=== PATIENT | female | born 1990 | race Caucasian/White ===

== ENCOUNTER 2017-12-31 17:08 | Outpatient (REF) | payer MEDICAID, SELFPAY ==
[2017-12-31 19:46] LABS: *AMPHETAMINES SCREEN URINE Negative (Negative); *BARBITURATES SCREEN URINE Negative (Negative); *BENZODIAZEPINES SCREEN URINE Negative (Negative); Cannabinoids THC Negative (Negative); Cocaine Screen,Urine Negative (Negative); METHADONE URINE SCREEN Negative (Negative); OPIATES URINE SCREEN Negative (Negative)
[2017-12-31 20:15] LABS: Tricyclic Antidepressants Negative (Negative)
[2018-01-04 14:35] LABS: Buprenorphine Negative; Norbuprenorphine Negative
== END 2017-12-31 17:28 ==
LOC: LBN 17:08
PROVIDERS: Visit Provider Advanced Practice Midwife
DX: Z34.91 Encounter for supervision of normal pregnancy, unspecified, first trimester (principal)
CPT/HCPCS: 80307; 87086

== ENCOUNTER 2018-01-01 08:55 | Outpatient (CLI) | payer MEDICAID, SELFPAY ==
[2018-01-01 10:14] LABS: Abs Immature Grans 0.01 k/cumm (0.0-0.09); Absolute Basophil Count 0.02 k/cumm (0.0-0.2); Absolute Lymphocyte Count 1.45 k/cumm (1.2-3.4); Absolute Neutrophil Count 5.28 k/cumm (1.2-6.7); Basophils % 0.3; Eosinophils % 1.4; HGB 13.2 g/dL (12.0-15.5); Immature Grans % 0.1; Lymphocytes % 19.7; Mean Corp. HGB Concentration 33.8 g/dL (32.0-36.0); Mean Corpuscular Hemoglobin 28.9 pg (27.0-33.0); Mean Corpuscular Volume 85.3 fL (80-95); Monocytes % 6.8; Neutrophils % 71.7; Platelet Count 209 x1000/uL (130-400); RBC 4.57 m/cumm (4.00-5.20); RBC Distribution Width 13.1 % (11.7-14.6); White Blood Cell Count 7.36 k/cumm (4.4-10.8)
[2018-01-01 10:39] LABS: Glucose,1 Hr (Glucola) 88 mg/dL (80-140)
[2018-01-01 10:53] LABS: TSH (W/Ref FT4) 1.94 uIU/mL (0.358-3.74)
[2018-01-02 12:19] LABS: Hepatitis B Surface Ag Negative (NEGAT)
[2018-01-02 12:21] LABS: HIV-1/2 Ag & Ab Screen Negative (NEGAT)
[2018-01-02 12:30] LABS: Rubella IgG Ab (UVM) Positive
[2018-01-02 12:37] LABS: Syphilis Serology (RPR) Negative (Negative)
[2018-01-02 12:39] LABS: Varicella IgG Antibody Positive
[2018-01-02 13:26] LABS: Hepatitis C Ab w Rflx HCV PCR Negative (NEGAT)
[2018-01-02 14:17] LABS: Chlamydia Result Negative; GC Result Negative; Specimen Description URINE
== END 2018-01-01 09:15 ==
PROVIDERS: Visit Provider Advanced Practice Midwife
DX: Z34.91 Encounter for supervision of normal pregnancy, unspecified, first trimester (principal); Z11.4 Encounter for screening for human immunodeficiency virus [HIV]; Z11.59 Encounter for screening for other viral diseases; Z01.84 Encounter for antibody response examination; Z11.3 Encounter for screening for infections with a predominantly sexual mode of transmission
CPT/HCPCS: 36415; 82950; 86787; 86803; 86850; 86900; 86901; 87340; 87389; 87491; 87591; 84443; 85025; 86592; 86762

== ENCOUNTER 2018-01-28 17:43 | Outpatient (REF) | payer MEDICAID, SELFPAY | END 2018-01-28 18:03 | LOC: LBN 17:43 | PROVIDERS: Visit Provider Advanced Practice Midwife | DX: Z53.8 Procedure and treatment not carried out for other reasons (principal) | CPT/HCPCS: 87491; 87591 ==

== ENCOUNTER 2018-03-10 00:48 | Outpatient (CLI) | payer MEDICAID, SELFPAY ==
--- NOTE | 2018-03-10 13:50 | DI.US_ITS ---
SYMPTOM/DIAGNOSIS: ROUTINE [facility], Z34.90 OBSTETRICAL ULTRASOUND: Routine examination was performed. There is a single living intrauterine gestation. Estimated sonographic age is 22 weeks 1 day. The placenta is posterior and unremarkable. The fetus is in the cephalic presentation. Amniotic fluid appears within normal limits. Estimated weight is 452 grams. Ventricular size is measured at 10 to 10.5 mm. This may represent borderline or mild enlargement of the ventricular size. No other abnormalities are appreciated. There is a normal 3-vessel cord. The spinal column has a normal morphology. The cerebellum has a normal appearance. heart rate is 135 to 141 BPM. IMPRESSION: 1. Single living intrauterine gestation, estimated sonographic age is 22 weeks 1 day 2. Borderline to mildly enlarged ventricular size. A follow up obstetrical ultrasound for ventricular size monitoring is recommended. Many abnormalities cannot be diagnosed. A normal exam does not exclude a congenital anomaly. Radiology No. [id number] LMP: Exam Date: 03/10/18 [facility] wks days on EDC ([facility]) 07/21/18 Confirmed: HISTORY: SURVEY ---- PREDICTED GESTATIONAL AGE NUMBER 21- weeks with a range of 20- week to 22- weeks. 1 Determined by___1STUS___LMP__XX_HISTORY Info. pertaining to fetus # PLACENTA PRESENTATION Grade 1 Cephalic__XX_ Anterior___Posterior_XX__ Breech____ Right Left Transverse(head right___ Fundal___Low-lying___Previa___ Transverse(head left___ Varying BIOMETRY AMNIOTIC FLUID BPD: 33 mm 22 +5 weeks Normal HC: 199 mm 22- weeks AC: 165 mm 21 +4 weeks FL: 38 mm 22- weeks AMNIOTIC FLUID INDEX >26 WK CRL: - mm - weeks Cisterna Magna: 4.0 mm CI: 87 RUQ: LUQ Cerebellum: 214 cm EFW: 452 grams 85% Percentile RLQ: LLQ Total: cms Composite AGE= 22 +1 wks EDC by US__07/13/18 BIOPHYSICAL PROFILE ANATOMY IDENTIFIED SCORE 0/2 Heart: 4-Chamber_X__Rate:BPM__135-141 BPM___ LVOT:____X RVOT:___X Amniotic Fluid(>2cms)____ Stomach:___X____ Kidneys:____X___ Respirations (>30 secs) Bladder:___X Post. Fossa:____X Body Flex/Extension 3 vessel cord:__X Ventricles:___X cord insertion:__X___ Lips:__X__ Extremity Flex/Extension spinal morphology:__X Nose:X Total Score= Palate:___X____ NS=not seen
== END 2018-03-10 01:08 ==
PROVIDERS: Visit Provider Advanced Practice Midwife
DX: Z34.92 Encounter for supervision of normal pregnancy, unspecified, second trimester (principal)
CPT/HCPCS: 76805

== ENCOUNTER 2018-05-02 01:45 | Outpatient (CLI) | payer MEDICAID, SELFPAY ==
[2018-05-02 09:27] LABS: Glucose,1 Hr (Glucola) 80 mg/dL (80-140)
[2018-05-02 09:31] LABS: HCT 34.8 % (36.0-46.0); HGB 11.8 g/dL (12.0-15.5); Mean Corp. HGB Concentration 33.9 g/dL (32.0-36.0); Mean Corpuscular Hemoglobin 31.1 pg (27.0-33.0); Mean Corpuscular Volume 91.6 fL (80-95); Mean Platelet Volume 10.3 fL (8.0-11.0); Platelet Count 203 x1000/uL (130-400); White Blood Cell Count 8.05 k/cumm (4.4-10.8)
== END 2018-05-02 02:05 ==
PROVIDERS: PCP Nurse Practitioner; Visit Provider Advanced Practice Midwife
DX: Z34.93 Encounter for supervision of normal pregnancy, unspecified, third trimester (principal)
CPT/HCPCS: 36415; 82950; 85027

== ENCOUNTER 2018-06-07 13:25 | Outpatient (CLI) | payer MEDICAID, SELFPAY | END 2018-06-07 13:45 | PROVIDERS: PCP Nurse Practitioner; Visit Provider Advanced Practice Midwife | DX: O9A.213 Injury, poisoning and certain other consequences of external causes complicating pregnancy, third trimester (principal); W00.0XXA Fall on same level due to ice and snow, initial encounter; Z3A.32 32 weeks gestation of pregnancy | CPT/HCPCS: 59025 ==

== ENCOUNTER 2018-06-09 01:22 | Outpatient (CLI) | payer MEDICAID, SELFPAY ==
--- NOTE | 2018-06-09 08:02 | DI.US_ITS ---
Many abnormalities cannot be diagnosed. A normal exam does not exclude a congenital anomaly. Radiology No. LMP: Exam Date: 06/09/18 [facility] wks days on EDC ([facility]) Confirmed: HISTORY: POLYHYDRAMNIS, Z34.90 PREDICTED GESTATIONAL AGE NUMBER 34 weeks with a range of week to weeks. 1 Determined by___1STUS___LMP___HISTORY Info. pertaining to fetus # PLACENTA PRESENTATION Grade I-II Cephalic__X_ Anterior___Posterior_X__ Breech____ Right Left___X____ Transverse(head right___ Fundal___Low-lying___Previa___ Transverse(head left___ Varying BIOMETRY AMNIOTIC FLUID BPD: mm weeks HC: mm weeks Polyhydramnios, borderline upper limits of normal AC: mm weeks FL: mm weeks AMNIOTIC FLUID INDEX >26 WK CRL: mm weeks Cisterna Magna: mm CI: RUQ:__4.04____LUQ___6.7 Cerebellum: cm EFW: grams Percentile RLQ:__6.7____LLQ 6.5__ Total:____24___cms Composite AGE= wks EDC by US BIOPHYSICAL PROFILE ANATOMY IDENTIFIED SCORE 0/2 Heart: 4-Chamber___Rate:BPM___153__ LVOT: RVOT: Amniotic Fluid(>2cms)____ Stomach: Kidneys: Respirations (>30 secs) Bladder: Post. Fossa: Body Flex/Extension 3 vessel cord: Ventricles: cord insertion: Lips:____ Extremity Flex/Extension spinal morphology: Nose: Total Score= Palate: NS=not seen Comparison is made with 03/10/18. The fetus is in cephalic position. The placenta is grade I-II and posterior. The amniotic fluid index is 24 which is at the upper limits of normal. IMPRESSION: SONU of 24 is at the upper limits of normal.
== END 2018-06-09 01:42 ==
PROVIDERS: PCP Nurse Practitioner; Visit Provider Advanced Practice Midwife
DX: Z34.93 Encounter for supervision of normal pregnancy, unspecified, third trimester (principal); O40.3XX1 Polyhydramnios, third trimester, fetus 1
CPT/HCPCS: 76816

== ENCOUNTER 2018-06-09 02:25 | Outpatient (CLI) | payer MEDICAID, SELFPAY ==
[2018-06-09 08:35] LABS: Glucose,1 Hr (Glucola) 116 mg/dL (80-140)
== END 2018-06-09 02:45 ==
PROVIDERS: PCP Nurse Practitioner; Visit Provider Advanced Practice Midwife
DX: Z34.93 Encounter for supervision of normal pregnancy, unspecified, third trimester (principal)
CPT/HCPCS: 36415; 82950

== ENCOUNTER 2018-06-23 00:34 | Outpatient (CLI) | payer MEDICAID, SELFPAY ==
--- NOTE | 2018-06-23 08:00 | DI.US_ITS ---
SYMPTOMS/DIAGNOSIS: ELEVATED AMNIOTIC FLUID INDEX AFFECTING , POLYHYDRAMNIOS, O40.9XX0 LIMITED OBSTETRICAL ULTRASOUND: Many abnormalities cannot be diagnosed. A normal exam does not exclude a congenital anomaly. Radiology No. [id number] LMP: Exam Date: 06/23/18 [facility] wks days on EDC ([facility]) 07/21/18 Confirmed: HISTORY: PREDICTED GESTATIONAL AGE NUMBER 36 weeks with a range of 35 weeks to 37 weeks. 1 Determined by___1STUS___LMP_X__HISTORY PLACENTA PRESENTATION Grade I-II Cephalic_X__ Anterior___Posterior_X__ Breech____ Right Left Transverse(head right___ Fundal___Low-lying___Previa___ Transverse(head left___ Varying BIOMETRY AMNIOTIC FLUID BPD: 94 mm 38+3 weeks Normal HC: 346 mm 40 weeks [place] Polyhydramnios AC: 336 mm 37+3 weeks FL: 75 mm 38+3 weeks AMNIOTIC FLUID INDEX >26 WK CRL: mm weeks Cisterna Magna: mm CI: 84 RUQ: 1.9 LUQ: 6.4 Cerebellum: cm EFW: 3393 grams Percentile: 95th RLQ: 7.9 LLQ: 6.9 Total: 23 cm Composite AGE= 38+4 wks EDC by US: 07/03/18 BIOPHYSICAL PROFILE ANATOMY IDENTIFIED SCORE 0/2 Heart: 4-Chamber___Rate:BPM 140 LVOT: RVOT: Amniotic Fluid(>2cms)____ Stomach: Kidneys: Respirations (>30 secs) Bladder: Post. Fossa: Body Flex/Extension 3 vessel cord: Ventricles: cord insertion: Lips:____ Extremity Flex/Extension spinal morphology: Nose: Total Score= Palate: NS=not seen SUMMARY: There is a single living intrauterine gestation. The fetus is in the cephalic presentation. heart rate is 140 beats per minute. anatomic evaluation was not performed at this time. Amniotic fluid index is 23 cm. Visually, amniotic fluid is within normal limits. The estimated gestational age is 38 weeks 4 days. The estimated weight is 3393 g, which is the 95th percentile. The placenta is posterior without evidence of previa. IMPRESSION: Single living intrauterine gestation. Estimated sonographic age is 38 weeks 4 days.
== END 2018-06-23 00:54 ==
PROVIDERS: PCP Nurse Practitioner; Visit Provider Advanced Practice Midwife
DX: O40.9XX3 Polyhydramnios, unspecified trimester, fetus 3 (principal)
CPT/HCPCS: 76816

== ENCOUNTER 2018-06-23 11:13 | Outpatient (REF) | payer MEDICAID, SELFPAY | END 2018-06-23 11:33 | LOC: LBN 11:13 | PROVIDERS: PCP Nurse Practitioner; Visit Provider Advanced Practice Midwife | DX: Z34.93 Encounter for supervision of normal pregnancy, unspecified, third trimester (principal); Z36.85 Encounter for antenatal screening for Streptococcus B | CPT/HCPCS: 87081 ==

== ENCOUNTER 2018-07-07 00:39 | Outpatient (CLI) | payer MEDICAID, SELFPAY ==
--- NOTE | 2018-07-07 07:48 | DI.US_ITS ---
Many abnormalities cannot be diagnosed. A normal exam does not exclude a congenital anomaly. Radiology No. LMP: Exam Date: 07/07/18 [facility] wks days on EDC ([facility]) 07/21/18 Confirmed: HISTORY: POLYHYDRAMNIOS, SONU, 040.3XX0 PREDICTED GESTATIONAL AGE NUMBER 38 weeks with a range of week to weeks. 1 Determined by___1STUS___LMP___HISTORY Info. pertaining to fetus # PLACENTA PRESENTATION Grade Cephalic__X_ Anterior___Posterior___ Breech____ Right Left Transverse(head right___ Fundal___Low-lying___Previa___ Transverse(head left___ Varying BIOMETRY AMNIOTIC FLUID BPD: mm weeks HC: mm weeks Polyhydramnios AC: mm weeks FL: mm weeks AMNIOTIC FLUID INDEX >26 WK CRL: mm weeks Cisterna Magna: mm CI: RUQ:__5.70____LUQ___5.86 Cerebellum: cm EFW: grams Percentile RLQ:__8.16___LLQ____7.31___ Total:___27.0 cms Composite AGE= wks EDC by US BIOPHYSICAL PROFILE ANATOMY IDENTIFIED SCORE 0/2 Heart: 4-Chamber___Rate:BPM__141___ LVOT: RVOT: Amniotic Fluid(>2cms)____ Stomach: Kidneys: Respirations (>30 secs) Bladder: Post. Fossa: Body Flex/Extension 3 vessel cord: Ventricles: cord insertion: Lips:____ Extremity Flex/Extension spinal morphology: Nose: Total Score= Palate: NS=not seen Limited third trimester protocol OB ultrasound was performed. There is visually an increased quantity of amniotic fluid and the SONU is 27. Fetus is in cephalic presentation. Placenta is posterior with no evidence of a placenta previa. cardiac activity observed at a rate of 141 BPM.
== END 2018-07-07 00:59 ==
PROVIDERS: PCP Nurse Practitioner; Visit Provider Advanced Practice Midwife
DX: O40.3XX0 Polyhydramnios, third trimester, not applicable or unspecified (principal); Z3A.38 38 weeks gestation of pregnancy
CPT/HCPCS: 76816

== ENCOUNTER 2018-07-09 16:56 | Observation (INO) | payer MEDICAID, SELFPAY | END 2018-07-09 20:07 | disposition home or self-care (01) | LOC: OBS 17:05 | PROVIDERS: Admitting Provider Advanced Practice Midwife; PCP Nurse Practitioner; Visit Provider Advanced Practice Midwife | DX: O47.1 False labor at or after 37 completed weeks of gestation (principal); Z3A.38 38 weeks gestation of pregnancy; Z79.82 Long term (current) use of aspirin | CPT/HCPCS: G0378 ==

== ENCOUNTER 2018-07-11 19:58 | Outpatient (CLI) | payer MEDICAID, SELFPAY | END 2018-07-11 20:18 | PROVIDERS: PCP Nurse Practitioner; Visit Provider Advanced Practice Midwife | DX: O26.893 Other specified pregnancy related conditions, third trimester (principal); H53.8 Other visual disturbances; Z3A.38 38 weeks gestation of pregnancy | CPT/HCPCS: 99211; 59025 ==

== ENCOUNTER 2018-07-12 10:00 | Outpatient (CLI) | payer MEDICAID, SELFPAY ==
[2018-07-12 12:18] LABS: HCT 33.6 % (36.0-46.0); HGB 11.5 g/dL (12.0-15.5); Mean Corp. HGB Concentration 34.2 g/dL (32.0-36.0); Mean Corpuscular Hemoglobin 30.8 pg (27.0-33.0); Mean Corpuscular Volume 90.1 fL (80-95); Mean Platelet Volume 10.4 fL (8.0-11.0); Platelet Count 181 x1000/uL (130-400); RBC 3.73 m/cumm (4.00-5.20); RBC Distribution Width 12.8 % (11.7-14.6); White Blood Cell Count 8.73 k/cumm (4.4-10.8)
[2018-07-12 12:27] LABS: PROTEIN 11.5 mg/dL
[2018-07-12 12:29] LABS: ALT 23 U/L (12-78); AST 18 U/L (15-37); Albumin 2.5 g/dL (3.4-5.0); Alkaline Phosphatase 142 U/L (46-116); Bilirubin, Direct 0.13 mg/dL (0.00-0.20); Bilirubin, Total 0.4 mg/dL (0.2-1.0); CREATININE 0.57 mg/dL (0.55-1.02); Total Protein 6.3 g/dL (6.4-8.2); Uric Acid 5.3 mg/dL (2.6-6.0)
[2018-07-12 12:29] LABS: Prot/Crea Ur Ratio 0.14
[2018-07-12 12:38] LABS: ROM Plus Negative
== END 2018-07-12 10:20 | disposition home or self-care (01) ==
PROVIDERS: PCP Nurse Practitioner; Visit Provider Advanced Practice Midwife
DX: O13.3 Gestational [pregnancy-induced] hypertension without significant proteinuria, third trimester (principal); O26.893 Other specified pregnancy related conditions, third trimester; R51 Headache; O09.293 Supervision of pregnancy with other poor reproductive or obstetric history, third trimester; Z3A.38 38 weeks gestation of pregnancy
CPT/HCPCS: 36415; 80076; 84112; 85027; 59025; 82565; 84156; 84550

== ENCOUNTER 2018-07-21 09:12 | Outpatient (CLI) | payer MEDICAID, SELFPAY | END 2018-07-21 09:32 | PROVIDERS: PCP Nurse Practitioner; Visit Provider Advanced Practice Midwife | DX: O40.3XX0 Polyhydramnios, third trimester, not applicable or unspecified (principal); Z3A.40 40 weeks gestation of pregnancy | CPT/HCPCS: 59025 ==

== ENCOUNTER 2018-07-26 21:54 | Observation (INO) | payer MEDICAID, SELFPAY | END 2018-07-26 23:45 | disposition home or self-care (01) | PROVIDERS: Admitting Provider Advanced Practice Midwife; PCP Nurse Practitioner; Visit Provider Advanced Practice Midwife | DX: O47.1 False labor at or after 37 completed weeks of gestation (principal); Z3A.40 40 weeks gestation of pregnancy; O48.0 Post-term pregnancy | CPT/HCPCS: 36415; 80076; 84112; 85027; 59025; 82565; 84156; 84550; G0378 ==

== ENCOUNTER 2018-07-28 00:37 | Outpatient (CLI) | payer MEDICAID, SELFPAY ==
--- NOTE | 2018-07-28 14:28 | DI.US_ITS ---
Predicted Gestational Age: Indication/History:POST DATES, 048.0 41 Wks Range: to Prior US done on: 07/07/18 Determined by: First US LMP History EDC by prior US: 07/21/18 For multiple gestations: Baby PLACENTA: Grade: II Location: Anterior X Posterior PRESENTATION: RT LT LOW LYING PREVIA X Cephalic Trans (Head RT LT ) Varied Breech BIOMETRY: Anatomy Identified: BPD: mm wks 4 chamber Heart Heart Rate 144 BPM HC: mm wks LVOT Post Fossa AC: mm wks RVOT Ventricles FL: mm wks Stomach Nose Bladder Lips Cisterna Magna: mm CI: Kidneys Palate Cerebellum: mm 3 vessel cord Spine EFW: grms % Cord Insertion NS= not seen Composite Age (US) wks Many abnormalities cannot be diagnosed. A normal exam does not exclude congenital abnormality. EDC by US Amniotic Fluid Index: Polyhydramnios COMMENTS: RUQ: 8.0 LUQ: 7.5 RLQ: 4.4 LLQ: 6.6 Total: 26.4 cm Biophysical Profile: Score 0/2 SONU (>2cm) ___2/2 Respirations (>30 sec) __2/2 Body flexion/extension ___2/2 Extremity flex/ext 2/2 TOTAL SCORE __8/8 The fetus is in cephalic position. The placenta is posterior. The amniotic fluid index is 26.4, consistent with polyhydramnios. There has been no significant change from the previous exam of 07/07/18. The biophysical profile is 8 out of 8. IMPRESSION: Polyhydramnios. Normal biophysical profile.
== END 2018-07-28 00:57 ==
PROVIDERS: PCP Nurse Practitioner; Visit Provider Advanced Practice Midwife
DX: O48.0 Post-term pregnancy (principal); O40.3XX1 Polyhydramnios, third trimester, fetus 1; Z36.2 Encounter for other antenatal screening follow-up
CPT/HCPCS: 76815; 76819

== ENCOUNTER 2018-07-28 08:01 | Outpatient (CLI) | payer MEDICAID, SELFPAY | END 2018-07-28 08:21 | PROVIDERS: PCP Nurse Practitioner; Visit Provider Advanced Practice Midwife | DX: O48.0 Post-term pregnancy (principal); Z3A.41 41 weeks gestation of pregnancy | CPT/HCPCS: 76815; 59025; 76819 ==

== ENCOUNTER 2018-07-30 17:25 | Inpatient (IN) | payer MEDICAID, SELFPAY ==
[2018-07-30 20:13] LABS: HCT 37.8 % (36.0-46.0); HGB 12.8 g/dL (12.0-15.5); Mean Corp. HGB Concentration 33.9 g/dL (32.0-36.0); Mean Corpuscular Hemoglobin 30.3 pg (27.0-33.0); Mean Corpuscular Volume 89.4 fL (80-95); Mean Platelet Volume 10.9 fL (8.0-11.0); Platelet Count 184 x1000/uL (130-400); RBC 4.23 m/cumm (4.00-5.20); RBC Distribution Width 12.8 % (11.7-14.6)
[2018-07-30] MEDS: miSOPROStol 50 MCG TAB PO (20:57)
[2018-07-30] MEDS: Zolpidem 5 MG TAB 10 MG PO (22:10)
[2018-07-31] MEDS: Lidocaine 1% Pres-Free 5 ML VIAL (07:22)
[2018-07-31] MEDS: Acetaminophen 325 MG TAB (07:56)
[2018-07-31] MEDS: Ibuprofen 600 MG TAB (07:56)
[2018-07-31] MEDS: Hamamelis Leaf/Glycerin 100 EACH BOX PR (10:07)
[2018-07-31] MEDS: Acetaminophen 325 MG TAB 650 MG PO (15:50)
[2018-07-31] MEDS: Ibuprofen 600 MG TAB PO ×2 (15:52→23:36)
[2018-08-01] MEDS: Acetaminophen 325 MG TAB 650 MG PO (02:57)
[2018-08-01 07:04] LABS: HCT 32.8 % (36.0-46.0); HGB 10.8 g/dL (12.0-15.5); Mean Corp. HGB Concentration 32.9 g/dL (32.0-36.0); Mean Corpuscular Hemoglobin 30.3 pg (27.0-33.0); Mean Corpuscular Volume 91.9 fL (80-95); Mean Platelet Volume 10.7 fL (8.0-11.0); Platelet Count 163 x1000/uL (130-400); RBC 3.57 m/cumm (4.00-5.20); RBC Distribution Width 13.2 % (11.7-14.6); White Blood Cell Count 9.14 k/cumm (4.4-10.8)
[2018-08-01] MEDS: Ibuprofen 600 MG TAB PO (10:15)
[2018-08-01] MEDS: Hamamelis Leaf/Glycerin 100 EACH BOX PR (16:29)
== END 2018-08-01 17:15 | disposition home or self-care (01) | DRG 807 ==
PROVIDERS: Admitting Provider Advanced Practice Midwife; PCP Nurse Practitioner; Visit Provider Advanced Practice Midwife
DX: O48.0 Post-term pregnancy (principal); Z37.0 Single live birth; Z3A.41 41 weeks gestation of pregnancy; O69.81X0 Labor and delivery complicated by cord around neck, without compression, not applicable or unspecified; O70.1 Second degree perineal laceration during delivery; O77.0 Labor and delivery complicated by meconium in amniotic fluid; Z79.82 Long term (current) use of aspirin
CPT/HCPCS: 36415; 85027; 86850; 86900; 86901; 59200; J3490

== ENCOUNTER 2018-09-11 15:13 | Outpatient (REF) | payer MEDICAID, SELFPAY ==
--- NOTE | 2018-09-11 14:00 | PAPFT_PTH ---
PATIENT: COLBY RITTER LOC: [facility] U#:[id number] AGE/SX: 28/F ROOM: RE09/11/[address]: Laure Flores CNM : 1990 BED: DIS: 09/11/2018 SPEC #: [id number] RECD: 09/11/18 17:59 STATUS: MARTIN REMacy #: [id number] BROOKE: 09/11/18 14:[address]: Laure Flores DEPT: [facility] Cytology RECD BY: Candace Rosales ENTERED: 09/11/18 18:00 SP TYPE: PAPFT OTHR DR: Goldie Ridley Tissues: 1 - CX/ENDOCX FOR PAP SMEARS Procedures: PAP THIN PREP/[facility] Screening Comments: [id number]
== END 2018-09-11 15:33 ==
LOC: LBN 15:13
PROVIDERS: PCP Nurse Practitioner; Visit Provider Advanced Practice Midwife
DX: Z12.4 Encounter for screening for malignant neoplasm of cervix (principal)
CPT/HCPCS: 88142